=== PATIENT | female | born 1960 | race Two or more races ===

== ENCOUNTER 2021-08-23 16:02 | Emergency (ER) | payer OTHER ==
[~2021-08-23] VITALS: Ht 157.5 cm; Wt 57.6 kg
[2021-08-23 18:14] VITALS: BP 145/86
[2021-08-23 19:04] LABS: Alcohol, Urine < 3.0 mg/dL (0-10); Amphetamine Screen, Urine NEGATIVE (NEGATIVE); Barbiturate Scree,Urine NEGATIVE (NEGATIVE); Benzodiazephine Screen, Urine NEGATIVE (NEGATIVE); Cannabinoid Screen, Urine NEGATIVE (NEGATIVE); Cocaine Screen, Urine NEGATIVE (NEGATIVE); Opiate Scree,Urine NEGATIVE (NEGATIVE)
[2021-08-23 19:08] LABS: Phencyclidine Screen, Urine NEGATIVE (NEGATIVE)
== END 2021-08-23 18:15 | disposition home or self-care (01) ==
LOC: ER 16:02
DX: R05.9 Cough, unspecified (principal); R07.9 Chest pain, unspecified; R51.9 Headache, unspecified; Z77.098 Contact with and (suspected) exposure to other hazardous, chiefly nonmedicinal, chemicals; Z88.6 Allergy status to analgesic agent
CPT/HCPCS: 71046; 80307

== ENCOUNTER 2021-08-25 11:49 | Emergency (ER) | payer OTHER ==
[~2021-08-25] VITALS: Ht 157.5 cm; Wt 57.6 kg
[2021-08-25] MEDS ORDERED: METH4PAK PO (14:05)
[2021-08-25] MEDS ORDERED: PROM1SOL4 PO (14:05)
[2021-08-25 14:12] VITALS: BP 108/71
== END 2021-08-25 14:18 | disposition home or self-care (01) ==
LOC: ER 11:49
DX: R05.1 Acute cough (principal); R94.31 Abnormal electrocardiogram [ECG] [EKG]; Z77.098 Contact with and (suspected) exposure to other hazardous, chiefly nonmedicinal, chemicals
CPT/HCPCS: 93005